=== PATIENT | male | born 1955 | race Caucasian/White ===

== ENCOUNTER 2022-01-21 07:26 | Day surgery (SDC) | payer MEDICARE ==
[~2022-01-21 07:26] MED LIST: Lactated Ringers 1,000 ML IV SCH; Sodium Chloride 0.9% 10 ML Syringe FLUSH PRN
[2022-01-21] MEDS ORDERED: Glycopyrrolate 0.2 MG/ML 5 ML MDV IV ONE (07:27)
[2022-01-21] MEDS ORDERED: Propofol 200 MG/20 ML SDV IV ONE (07:27)
== END 2022-01-21 11:05 | disposition home or self-care (01) ==
LOC: FB.SDS 07:26
PROVIDERS: ATTEND Surgery
DX: Z12.11 Encounter for screening for malignant neoplasm of colon (principal); D12.6 Benign neoplasm of colon, unspecified; K57.30 Diverticulosis of large intestine without perforation or abscess without bleeding; J45.909 Unspecified asthma, uncomplicated; Z80.0 Family history of malignant neoplasm of digestive organs; Z79.899 Other long term (current) drug therapy; Z88.8 Allergy status to other drugs, medicaments and biological substances; Z91.048 Other nonmedicinal substance allergy status; Z87.891 Personal history of nicotine dependence
CPT/HCPCS: 00812-QZ; 88305; J2704; J3490; J7120